=== PATIENT | female | born 1960 | race Asian ===

== ENCOUNTER 2017-10-03 06:47 | Day surgery (SDC) | payer OTHER ==
[~2017-10-03 06:47] MED LIST: Buffered Lidocaine 0.9% SYRIN* 5 ML/SYR SYRINGE INTRADERM ONE
[2017-10-03] MEDS ORDERED: fentaNYL* 50 MCG/ML 2 ML VIAL (100 MCG VIAL) IV PRN (07:24)
[2017-10-03] MEDS ORDERED: Ketorolac INJ* 30 MG/ML 1 ML VIAL IV PRN (07:24)
[2017-10-03] MEDS ORDERED: Ondansetron INJ* 2 MG/ML VIAL IV PRN (07:24)
[2017-10-03] MEDS ORDERED: Naloxone* 0.4 MG/ML 1 ML VIAL IV PRN (07:24)
[2017-10-03] MEDS ORDERED: Dexamethasone IV* 4 MG/ML 1 ML (4 MG) ONE (07:30)
[2017-10-03] MEDS ORDERED: Bupivacaine 0.5% SDV PF* 10-30ML VIAL ONE (07:30)
[2017-10-03] MEDS ORDERED: Lidocaine 1% INJ* 10 MG/ML 30 ML SDV ONE (07:30)
[2017-10-03] MEDS ORDERED: fentaNYL* 50 MCG/ML 2 ML VIAL (100 MCG VIAL) ONE (07:35)
[2017-10-03] MEDS ORDERED: Propofol* 10 MG/ML 20 ML BTL IV PUSH ONE (07:35)
[2017-10-03] MEDS ORDERED: Midazolam* 1 MG/ML 2 ML VIAL (2 MG) ONE (07:35)
[2017-10-03] MEDS ORDERED: ceFAZolin 1 GM VIAL(*) ONE ×2 (07:40→09:06)
[2017-10-03 09:41] VITALS: BP 114/72
--- NOTE | 2017-10-04 06:53 | OP ---
OPERATIVE REPORT: DATE OF OPERATION: 10/03/17 DATE OF : 62 SURGEON: Seferino Landin DPM. VACUUM CASTER: None. ANESTHESIA: MAC with local. PRE-OP DIAGNOSIS: Painful bunion deformity with hallux limitus, left foot. POST-OP DIAGNOSIS: Painful bunion deformity with hallux limitus, left foot. OPERATIVE PROCEDURE: Bunionectomy with first metatarsal osteotomy and phalangeal osteotomy, left nikolas t. PATHOLOGY: Degenerative bone. HEMOSTASIS: Pneumatic ankle tourniquet. ESTIMATED BLOOD LOSS: Less than 10 cc. MATERIALS: Two of the 3.0 mm cannulated Justine screws. INDICATIONS: The patient with chronic left forefoot pain and deformity with bunion, decreased range of motion, hypertrophic bone medially of the great toe joint. The patient has progressive pain and d eformity, making it painful to wear closed shoes and walk, and she opts for surgery at this time to a ttempt to decrease pain and improve her function and ability to wear shoes and walk with less pain. DESCRIPTION OF PROCEDURE: The patient was brought to the operating room, placed on the operating larry m table in a supine position. The anesthesia department administered IV sedation and peripheral nerv e block was performed about the left foot with a 1:1 mixture of 1% lidocaine plain and 0.5% Marcaine plain. The left foot was prepped and draped in usual fashion. The left foot was then exsanguinated with an Esmarch bandage and pneumatic ankle tourniquet was inflated to 250 mmHg above a well-padded l eft ankle. Attention was directed to the dorsal medial aspect of the left great toe joint where a cu rvilinear incision was made. The incision was deepened through the subcutaneous tissues with care be ing taken to retract neurovascular structures and cauterize superficial bleeders as needed. An inver brennan L capsular incision was made to allow for exposure of the great toe joint. There was noted to be hypertrophic bone at the medial aspect of the first metatarsal head. Next, a traditional lateral re lease was performed dissecting into the first intermetatarsal space and transecting the conjoint tend on of the adductor hallucis, a portion of the lateral fibular sesamoid ligament and lateral capsule, and extensor hallucis brevis tendon was identified and transected. McGlamry elevator was needed to g ently free the plantar lateral adhesions of the sesamoid. This allowed for for relaxation of lateral contractures. The hypertrophic bone medially was resected up to the first metatarsal head in such a manner as to preserve the sagittal groove. Next, a chevron type osteotomy was performed with the ap ex just dorsal and proximal to the geometric center in the first metatarsal head. The plantar wing w as cut slightly plantar proximally to allow for some plantar flexion of the capital fragment. The do rsal wing was cut as well. The capital fragment was transposed laterally to the desired corrected po sition. Temporary fixation was achieved with the wire from the screw set and using a standard techni que, a 3.0 mm Heber cannulated screw was placed across the osteotomy site and fixation was tested w ith a mini C-arm. Temporary fixation was removed and the osteotomy was found to be solid with no det ectable motion or gaping. The screws found to be 2 fingers tight. Redundant medial shelf of bone wa s resected. A power anabelle was used to smooth off rough edges. There was still some angular deformity within the great toe and dissection was carried distally reflecting the periosteal and capsular tiss ues, allowing for exposure of the proximal phalanx. Next, an angular phalangeal osteotomy was perfor med from distal-medial to the more proximal-lateral with medial base wedge of bone removed. The oste otomy then was reduced. Temporary fixation was achieved with the bone clamp and wire from the screw set was placed across the osteotomy site and after assessing the position with C-arm, using standard technique, a 3.0 mm cannulated Justine screw was placed across the osteotomy site. Temporary fixatio n was removed. Again, the fixation and correction was assessed with C-arm. The osteotomy area was f ound to be solid with no detectable motion or gaping, and the screw was 2 fingers tight. Medial caps ulorrhaphy was performed resecting redundant medial capsule. The surgical site was flushed with copi ous amounts of normal sterile saline. Next, the periosteal and capsular tissues were reapproximated and secured with 2-0 Vicryl by holding the hallux in the rectus position. The subcutaneous tissues w ere reapproximated with 4- 0 Vicryl and skin was reapproximated and secured with 5-0 nylon. A 12 mg of dexamethasone phosphate was infiltrated about the surgical site. The surgical site was then dress ed with Xeroform gauze and light compressive dressing consisting of 4x4 gauze, Roslyn, and light Coban wrap. The pneumatic ankle tourniquet was deflated about the left ankle and a prompt hyperemic respo nse was noted to all 5 digits in the patient's left foot. Having appeared to have tolerated the proc edures and anesthesia well, patient was transported via cart from the operating room to Recovery in s atisfactory condition with cap refill less than 3 seconds to all digits of the left foot. [id number]/[facility] #: [id number]
--- NOTE | 2017-10-05 11:34 | RAD ---
INDICATION: LEFT foot bunion repair. COMPARISON: November 12, 2014 TECHNIQUE: 9 seconds fluoroscopy. FINDINGS: Spot images document distal first metatarsal and proximal phalanx osteotomies with cannulated lag screw internal fixation. IMPRESSION: Procedural fluoroscopy. CPT II Codes: 6045F
== END 2017-10-03 09:39 | disposition home or self-care (01) ==
LOC: OREAST 06:47
PROVIDERS: ATTEND Podiatrist Foot Surgery
DX: M21.612 Bunion of left foot (principal); M20.5X2 Other deformities of toe(s) (acquired), left foot; G47.33 Obstructive sleep apnea (adult) (pediatric); K21.9 Gastro-esophageal reflux disease without esophagitis; M19.90 Unspecified osteoarthritis, unspecified site
CPT/HCPCS: 76000; 88304; 88311; C1713; C1776; J0690; J1100; J2250; J2704; J3010